=== PATIENT | female | born 2000 | race African-American/Black ===

== ENCOUNTER 2020-09-12 16:52 | Emergency (ER) | payer OTHER ==
[~2020-09-12] VITALS: Ht 149.9 cm; Wt 38.6 kg
--- NOTE | ~2020-09-12 | EMS ---
[address] [address] EMS Patient Care Report Name: CRISTAL OBRIEN Room #: PRE M.R.#: [id number] Admission: Attend Phys: Discharge: Date of : [birth year] Report #: [id number] THIS REPORT FOR: //name// Report Transmitted: 09/12/2020 16:37 EMS Care Summary [facility] MED-ACT Incident [id number] @ 09/12/2020 16:21 Incident Location [address] [place] [address] Patient CRISTAL OBRIEN Female, 20 Years 2000 Patient Address [address] [place] [address] Patient History Other,Arthritis,Anxiety, Patient Allergies Amoxicillin, Patient Medications None Reported, Chief Complaint "I have chest and kidnery pain" Disposition Transported No Lights/[place] Dispatch Reason Chest Pain (Non-Traumatic) Transported To [facility] Narrative [id number] dispatched to the above location for C1 chest pain. Upon arrival to the scene, pt can be found seated in a chair, in the living room. The pt is alert [address] [address] EMS Patient Care Report Name: CRISTAL OBRIEN Room #: PRE Patel#: [id number] Admission: Attend Phys: Discharge: Date of : [birth year] Report #: [id number] and oriented and is tracking EMS crew. The pt appears anxious but in no imminent distress. The pt's skin is pink, warm, and dry. No audible breath sounds, JVD, accessory muscle use, or body fluids noted. No fever, cough or shortness of breath noted. No trauma noted. Upon arrival to the scene, the pt stated that she was having chest pain "in the center" of her chest. The pt stated that the pain is a "pressure" and is "making it hard to breathe". The pt stated that the chest pain "started last night" but that she has had this chest pain many times before. The pt stated that the pain is worse upon palpation and inspiration. The pt stated that she has a "heart murmur" which "needed testing". The pt also stated that she has pain in her kidneys and that it "hurts to go to the bathroom". The pt stated that she also feels nauseous. Upon arrival to the scene, pt contact is made. Primary and secondary assessment was performed. Vital signs were acquired. The pt was helped to stand and walk to the ambulance with help from EMS crews. The pt was sat on the cot and secured using safety straps. 12 lead was acquired. Transport to [place] was started. Biocom was given with no questions or orders. Upon arrival to the hospital, the pt was moved to the bed in ED room 2. Report was given and care was transferred to ED RN. Initial Vitals @16:45P: 94,R: 16,BP: 127/81,Pain: 9/10,GCS: 15,SpO2: 100,Revised Trauma: 12, @16:35P: 89,R: 16,Pain: 9/10,GCS: 15,SpO2: 98,IN Suspected: false @16:30P: 105,R: 16,BP: 147/84,Pain: 9/10,GCS: 15,Temp: 97.8F,SpO2: 99,Revised Trauma: 12, Assessments @16:40MENTAL:Person Oriented,Time Oriented,Place Oriented,Event Oriented,SKIN:HEENT:Eyes: Left Pupil: 4-mm,Eyes: Right Pupil: 4-mm,Head/Face: No Abnormalities,Neck/Airway: No Abnormalities,LUNG SOUNDS:General: Nausea,ABDOMEN:General: Nausea,PELVIS//GI:No Abnormalities,EXTREMITIES:Left Arm: No Abnormalities,Right Arm: No Abnormalities,Left Leg: No Abnormalities,Right Leg: No Abnormalities,PULSE:NEURO:No Abnormalities, Impression Chest pain on breathing Procedures @16:40Surgical Mask on PatientResponse: Unchanged@16:3512-Lead ECG Timeline 16:20,Call Received 16:20,Psap Call 16:21,Dispatched [address] [address] EMS Patient Care Report Name: CRISTAL OBRIEN Room #: PRE ER M.R.#: [id number] Admission: Attend Phys: Discharge: Date of : [birth year] Report #: [id number] 16:22,En Route 16:26,On Scene 16:27,At Patient 16:30,BP: 147/84 M,PULSE: 105,RR: 16 R,SPO2: 99 Ox,ETCO2: ,BG: ,PAIN: 9,GCS: 15, 16:35,12-Lead ECG, 16:35,BP: / M,PULSE: 89,RR: 16 R,SPO2: 98 Ox,ETCO2: ,BG: ,PAIN: 9,GCS: 15, 16:38,Depart Scene 16:40,Surgical Mask on Patient,Response: Unchanged 16:45,BP: 127/81 M,PULSE: 94,RR: 16 R,SPO2: 100 Ox,ETCO2: ,BG: ,PAIN: 9,GCS: 15, 16:49,At Destination 17:00,Call Closed Disclaimer v1.1 Copyright 2020 [employer] This EMS Care Summary contains data elements from the applicable legal record (which may be displayed differently). It is designed to provide pertinent information for the following purposes: continuity of care, clinical quality, and state data reporting. The complete legal record is available to ED staff and administrators of the receiving hospital in [employer]'s Patient Tracker. All data is provided "as is."
[2020-09-12 17:32] LABS: URINE BILIRUBIN NEGATIVE (Negative); URINE BLOOD NEGATIVE (Negative); URINE CLARITY CLEAR; URINE COLOR YELLOW; URINE GLUCOSE-RANDOM* NEGATIVE (Negative); URINE KETONES NEGATIVE (Negative); URINE LEUKOCYTES-REFLEX NEGATIVE (Negative); URINE NITRITE-REFLEX NEGATIVE (Negative); URINE PROTEIN (DIPSTICK) NEGATIVE (Negative); URINE SPECIFIC GRAVITY 1.025 (1.005-1.035); URINE UROBILINOGEN 0.2 E.U./dl (0.2-1.0)
[2020-09-12 17:52] LABS: ABSOLUTE NEUTROPHILS 1.9 thou/uL (1.4-8.2); BASOPHILS 0.4 % (0.0-2.0); EOSINOPHILS 6.8 % (0.0-3.0); HEMATOCRIT 32.7 % (37.0-47.0); HEMOGLOBIN 10.8 gm/dL (12.0-15.0); LYMPHOCYTES 33.5 % (24.0-44.0); MCHC 32.9 g/dL (28.0-37.0); MCV 76.1 fL (80.0-100.0); MONOCYTES 19.2 % (1.0-8.0); PLATELET COUNT 201 thou/uL (150-400); POLYS 40.1 % (36.0-66.0); RDW 15.5 % (10.5-14.5); WBC 4.8 thou/uL (4.0-11.0)
[2020-09-12 18:08] LABS: ANION GAP 9 mmol/L (7-16); BUN 9 mg/dL (7-18); CALCIUM 8.4 mg/dL (8.5-10.1); CHLORIDE 106 mmol/L (98-107); CO2 23 mmol/L (21-32); CREATININE 0.6 mg/dL (0.6-1.0); GLUCOSE 120 mg/dL (74-106); POTASSIUM 3.6 mmol/L (3.5-5.1); SODIUM 138 mmol/L (136-145)
[2020-09-12 18:12] LABS: ALBUMIN 3.7 g/dL (3.4-5.0); DIRECT BILIRUBIN < 0.1 mg/dL (<0.1-0.2); LIPASE 136 U/L (73-393); SGOT 16 U/L (15-37); SGPT 21 U/L (14-59); TOTAL BILIRUBIN 0.2 mg/dL (0.2-1.0); TOTAL PROTEIN 7.5 g/dL (6.4-8.2)
[2020-09-12 18:59] VITALS: BP 130/57
[2020-09-12] MEDS ORDERED: COLACE100 MG PO (19:24)
[2020-09-12] MEDS ORDERED: LEVSIN-SL0.125 MG PO (19:24)
[2020-09-12] MEDS ORDERED: ZOFRAN ODT4 MG PO (19:24)
--- NOTE | 2020-09-13 09:51 | EKG ---
[address] [address] ELECTROCARDIOGRAM REPORT Name: CRISTAL OBRIEN Room #: DEP MILA Sweeney#: [id number] Admission: 09/12/20 Attend Phys: Discharge: 09/12/20 Date of : 99 Report #: [id number] [facility] ED Test Date: 2020-09-12 Test Time: 17:25:37 Pat Name: CRISTAL OBRIEN Department: Room: Gender: F [employer]: bright : 2000 Requested By: Karina Mcdonald Order Number: [id number] MD: Miguel Quinn Measurements Intervals [place] Rate: 100 P: 54 OR: 175 QRS: 61 QRSD: 80 T: 35 QT: 333 QTc: 430 Interpretive Statements Sinus tachycardia No previous ECG available for comparison Electronically Signed On 09-13-2020 9:50:49 CDT by Miguel Quinn [email or web address] <ELECTRONICALLY SIGNED> By: Miguel Quinn MD, [facility] 09/13/20 0950 1725 1725 Miguel Quinn MD, FACC /EPI
== END 2020-09-12 21:35 | disposition home or self-care (01) ==
LOC: ER 16:52
PROVIDERS: Emergency Medicine
DX: R10.817 Generalized abdominal tenderness (principal); M54.5 Low back pain; M19.90 Unspecified osteoarthritis, unspecified site; R07.89 Other chest pain; Z88.1 Allergy status to other antibiotic agents; Z87.442 Personal history of urinary calculi

== ENCOUNTER 2020-11-17 17:06 | Emergency (ER) | payer OTHER ==
[~2020-11-17] VITALS: Ht 144.8 cm; Wt 35.8 kg
--- NOTE | ~2020-11-17 | EMS ---
[address] [address] EMS Patient Care Report Name: CRISTAL OBRIEN Room #: REG MILA Sweeney#: [id number] Admission: 11/17/20 Attend Phys: Discharge: Date of : [birth year] Report #: [id number] THIS REPORT FOR: //name// Report Transmitted: 11/17/2020 16:40 EMS Care Summary [facility] MED-ACT Incident [id number] @ 11/17/2020 16:25 Incident Location [address] [place] [address] Patient CRISTAL OBRIEN Female, 20 Years 2000 Patient Address [address] [place] [address] Patient History Other,Arthritis,Anxiety,Sickle Cell Disease, Patient Allergies Penicillin allergy,Amoxicillin, Patient Medications None Reported, Chief Complaint "I hurt all over." Disposition Transported No Lights/[place], Upgraded Dispatch Reason Sick Person Transported To [facility] Narrative History: Pt reports she has a history of sickle cell disease. Pt reports that over the course of the last three weeks she has been experiencing a burning [address] [address] EMS Patient Care Report Name: CRISTAL OBRIEN Room #: REG MILA Sweeney#: [id number] Admission: 11/17/20 Attend Phys: Discharge: Date of : [birth year] Report #: [id number] pain in her arms and legs that has gotten persistently worse. Pt reports she has been seen at multiple area hospitals but has not received definitive care. Pt reports she is not able to get in to see her PCP until next year. Pt complains of 10/10 pain all over, especially in her arms and legs. No other complaints noted at this time. Assessment: Pt was found seated on a sofa in her apartment under the care of Gian MAY. Pt ABCs intact. Pt A&Ox4. See assessment tab for detailed physical exam findings and pertinent negatives. Treatment: Primary. VS. HPI. PMH. Physical exam. Pt able to stand and sit on EMS stair chair and secured. Pt moved via stair chair to stretcher outside the apartment. Pt able to stand and sit on EMS stretcher and secured. Pt moved via stretcher to ambulance. IV established 20g in pt's R forearm. 50 mcg of fentanyl given IV. Pt placed on youth nutritional monitor. Transport: En route, continue with on-going assessment. Pt VS and condition remained stable and unchanged during reassessment. Pt reports some improvement after fentanyl administration. No other changes noted. Destination: Pt was brought via stretcher to ED room 9. Pt moved via stretcher to hospital bed. Report provided to attending RN. Patient signed. Care transferred. Initial Vitals @17:00P: 84,BP: 119/72,SpO2: 100, @16:46P: 77,BP: 110/72,SpO2: 99, @16:51P: 113,SpO2: 100,ID Suspected: false @PTAP: 100,R: 18,BP: 147/85,Pain: 10/10,GCS: 15,Temp: 98.7F,SpO2: 100,Revised Trauma: 12, Impression Sickle Cell Crisis Procedures @16:47Normal Saline (.9% NaCl) 10cc (20 ga) Site: Forearm-RightResponse: UnchangedSucceeded@16:50Fentanyl - 50 Micrograms (mcg) - Intravenous (IV)Response: Improved@16:45Surgical Mask on PatientResponse: Unchanged Timeline SNOW GROOMER,BP: 147/85 M,PULSE: 100,RR: 18 R,SPO2: 100 Ox,ETCO2: ,BG: ,PAIN: 10,GCS: 15, 16:20,Call Received 16:20,Psap Call [facility] [address] [place] [address] EMS Patient Care Report Name: MICAHCRISTAL Room #: REG Marivel.#: [id number] Admission: 11/17/20 Attend Phys: Discharge: Date of : 89 Report #: [id number] 16:25,Dispatched 16:25,En Route 16:34,On Scene 16:36,At Patient 16:45,Surgical Mask on Patient,Response: Unchanged 16:46,BP: 110/72 M,PULSE: 77,RR: R,SPO2: 99 Ox,ETCO2: ,BG: ,PAIN: ,GCS: , 16:47,Normal Saline (.9% NaCl) 10cc 20 ga Site: Forearm-Right,Response: UnchangedSucceeded, 16:50,Fentanyl - 50 Micrograms (mcg) - Intravenous (IV),Response: Improved 16:51,Depart Scene 16:51,BP: / M,PULSE: 113,RR: R,SPO2: 100 Ox,ETCO2: ,BG: ,PAIN: ,GCS: , 17:00,BP: 119/72 M,PULSE: 84,RR: R,SPO2: 100 Ox,ETCO2: ,BG: ,PAIN: ,GCS: , 17:01,At Destination 17:18,Call Closed Disclaimer v1.1 Copyright 2020 [employer] This EMS Care Summary contains data elements from the applicable legal record (which may be displayed differently). It is designed to provide pertinent information for the following purposes: continuity of care, clinical quality, and state data reporting. The complete legal record is available to ED staff and administrators of the receiving hospital in [employer]'s Patient Tracker. All data is provided "as is."
[~2020-11-17 17:06] MED LIST: COLACE100 MG PO; LEVSIN-SL0.125 MG PO; ZOFRAN ODT4 MG PO
[2020-11-17 18:05] LABS: CALCIUM 8.5 mg/dL (8.5-10.1); CREATININE 0.7 mg/dL (0.6-1.0); POTASSIUM 3.5 mmol/L (3.5-5.1)
[2020-11-17 18:45] LABS: ABSOLUTE NEUTROPHILS 2.3 thou/uL (1.4-8.2); ABSOLUTE RETIC COUNT 0.0358 10^6/uL; BASOPHILS 0.6 % (0.0-2.0); EOSINOPHILS 1.3 % (0.0-3.0); HEMATOCRIT 36.9 % (37.0-47.0); HEMOGLOBIN 11.5 gm/dL (12.0-15.0); LYMPHOCYTES 39.8 % (24.0-44.0); MCH 24.4 pg (26.0-34.0); MCHC 31.3 g/dL (28.0-37.0); MONOCYTES 13.4 % (1.0-8.0); OBSERVED RETIC COUNT 0.76 % (0.6-2.6); PLATELET COUNT 229 thou/uL (150-400); POLYS 44.9 % (36.0-66.0); RBC 4.73 mil/uL (4.20-5.00); RDW 16.7 % (10.5-14.5)
[2020-11-17 19:18] LABS: URINE BILIRUBIN NEGATIVE (Negative); URINE BLOOD NEGATIVE (Negative); URINE CLARITY CLEAR; URINE COLOR YELLOW; URINE GLUCOSE-RANDOM* NEGATIVE (Negative); URINE KETONES TRACE (Negative); URINE LEUKOCYTES-REFLEX NEGATIVE (Negative); URINE NITRITE-REFLEX NEGATIVE (Negative); URINE PROTEIN (DIPSTICK) NEGATIVE (Negative); URINE SPECIFIC GRAVITY 1.015 (1.005-1.035); URINE UROBILINOGEN 0.2 E.U./dl (0.2-1.0)
[2020-11-17 19:27] LABS: AMP/METHAMP Negative (Negative); BARBITURATES Negative (Negative); BENZODIAZEPINES Negative (Negative); COCAINE Negative (Negative); METHADONE Negative (Negative); OPIATES Negative (Negative); PCP Negative (Negative)
[2020-11-17 19:44] VITALS: BP 124/73
[2020-11-17] MEDS ORDERED: MOBIC7.5 MG PO (19:45)
== END 2020-11-17 20:06 | disposition home or self-care (01) ==
LOC: EDBD 17:06 → ER 17:06
PROVIDERS: Nurse Practitioner
DX: M79.18 Myalgia, other site (principal); F41.9 Anxiety disorder, unspecified; M19.90 Unspecified osteoarthritis, unspecified site; Z88.1 Allergy status to other antibiotic agents